=== PATIENT | male | born 1950 | race Two or more races ===

== ENCOUNTER 2017-04-26 11:34 | Inpatient (IN) | payer OTHER ==
[2017-04-26 11:55] VITALS: BMI 25.8
--- NOTE | 2017-04-26 14:55 | HP ---
CIWA Score - CIWA Score Nausea/Vomitin Muscle Tremors: 3 Anxiety: 3 Agitation: 3 Paroxysmal Sweats: 2 Orientation: 0-Oriented Tacttile Disturbances: 2-Mild Itch/Numbness/Burn Auditory Disturbances: 2-Mild Harshness/Frighten Visual Disturbances: 0-None Headache: 2-Mild CIWA-Ar Total Score: 20 Admission ROS BHS - HPI Chief Complaint: i need help to stop drinking alcohol Allergies/Adverse Reactions: Allergies Allergy/AdvReac Type Severity Reaction Status Date / Time No Known Allergies Allergy Verified 04/26/17 14:41 History of Present Illness: this 67 years old male with alcohol dependence,seeking detox,never been in detox before syncope alcohol related childhood asthma history of hypertension fx left wrist,left ankle anxiety,depression,insomnia longest period of sobriety 3 years - Ebola screening Have you traveled outside of the country in the last 21 days: No Have you had contact with anyone from an Ebola affected area: No Have you been sick,other than usual withdrawal symptoms: No Do you have a fever: No - Review of Systems Constitutional: Loss of Appetite, Malaise, Night Sweats, Changes in sleep, Weakness EENT: reports: Nose Congestion Respiratory: reports: No Symptoms reported, Other (childhood asthma) Cardiac: reports: No Symptoms Reported GI: reports: Diarrhea, Nausea, Vomiting, Abdominal cramping : reports: No Symptoms Reported Musculoskeletal: reports: Back Pain, Muscle Pain Integumentary: reports: Dryness Neuro: reports: Tremors Endocrine: reports: No Symptoms Reported Hematology: reports: No Symptoms Reported Psychiatric: reports: Anxious, Depressed (insomnia) Patient History - Patient Medical History Hx Anemia: No Hx Asthma: Yes (childhood asthma) Hx Chronic Obstructive Pulmonary Disease (COPD): No Hx Cancer: No Hx Cardiac Disorders: No Hx Congestive Heart Failure: No Hx Hypertension: Yes (on med) Hx Hypercholesterolemia: No Hx Pacemaker: No HX Cerebrovascular Accident: No Hx Seizures: No Hx Dementia: No Hx Diabetes: No Hx Gastrointestinal Disorders: No Hx Liver Disease: No Hx Genitourinary Disorders: No Hx Sexually Transmitted Disorders: No Hx Renal Disease (ESRD): No Hx Thyroid Disease: No Hx Human Immunodeficiency Virus (HIV): No (never robert tesed,did not want the test done) Hx Hepatitis C: No Hx Depression: Yes Hx Suicide Attempt: No Hx Bipolar Disorder: No Hx Schizophrenia: No Other Medical History: anxiety,no suicidal,no homicidal - Patient Surgical History Past Surgical History: No - PPD History Previous Implant?: Yes Documented Results: Negative w/o proof Implanted On Prior [facility] Admission?: No PPD to be Administered?: Yes - Smoking Cessation Smoking history: Never smoked - Substance & Tx. History Hx Alcohol Use: Yes Hx Substance Use: No Substance Use Type: Alcohol Hx Substance Use Treatment: No - Substances Abused Alcohol Route: Oral Frequency: Daily Amount used: 1 LITER SCOTCH Age of first use: 19 Date of Last Use: 04/26/17 Family Disease History - Family Disease History Family Disease History: Other: Grandparent (alcohol) Admission Physical Exam [facility] - Vital Signs Vital Signs: Vital Signs - 24 hr 04/26/17 11:53 Temperature 98.9 F Pulse Rate 84 Respiratory 18 Rate Blood Pressure 150/100 - Physical General Appearance: Yes: Moderate Distress, Tremorous, Irritable, Sweating, Anxious HEENTM: Yes: Normal ENT Inspection, VIVIEN, Pharynx Normal Respiratory: Yes: Lungs Clear, Normal Breath Sounds, No Respiratory Distress Neck: Yes: Within Normal Limits, Trachea in good position Breast: Yes: Within Normal Limits Cardiology: Yes: Within Normal Limits, Regular Rhythm, Regular Rate, S1, S2 Abdominal: Yes: Normal Bowel Sounds, Non Tender, Soft, Organomegaly Genitourinary: Yes: Within Normal Limits Back: Yes: Muscle Spasm Musculoskeletal: Yes: full range of Motion, Back pain, Muscle Pain Extremities: Yes: Normal Range of Motion, Tremors Neurological: Yes: education manager II-XII NML intact, Fully Oriented, Alert, Motor Strength 5/5 Integumentary: Yes: Dry Lymphatic: Yes: Within Normal Limits - Diagnostic (1) Alcohol dependence with uncomplicated withdrawal Current Visit: Yes Status: Acute (2) Essential hypertension Current Visit: Yes Status: Acute (3) Syncope Current Visit: Yes Status: Acute (4) Fx. left wrist Current Visit: Yes Status: Acute (5) Fracture of left ankle Current Visit: Yes Status: Acute (6) Insomnia secondary to depression with anxiety Current Visit: Yes Status: Acute Cleared for Admission [facility] - Detox or Rehab [facility] Level of Care: Medically Managed Detox Regimen/Protocol: Librium [facility] Breath Alcohol Content Breath Alcohol Content: 0.015 Urine Drug Screen - Results Drug Screen Negative: Yes
[2017-04-26] MEDS ORDERED: MENTHOL/PHENOL 1 EACH UD MM PRN (15:07)
[2017-04-26] MEDS ORDERED: guaiFENesin/D-METHORPHAN HB 10 ML UNIT-DOSE CUPS PO PRN (15:07)
[2017-04-26] MEDS ORDERED: MAGNESIUM HYDROX 2400MG/30ML ORAL SUSPENSION 30 ML CUP PO PRN (15:07)
[2017-04-26] MEDS ORDERED: MAGNESIUM CITRATE 300 ML BOTTLE PO PRN (15:07)
[2017-04-26] MEDS ORDERED: chlordiazePOXIDE HCL 25 MG CAPSULE PO PRN (15:07)
[2017-04-26] MEDS ORDERED: P-EPHED 60MG/TRIPROLIDI 2.5MG TABLET PO PRN (15:07)
[2017-04-26] MEDS ORDERED: ACETAMINOPHEN 325 MG TABLET (FP) PO PRN (15:07)
[2017-04-26] MEDS ORDERED: hydrOXYzine PAMOATE 25 MG CAPSULE (FP) PO PRN (15:07)
[2017-04-26] MEDS ORDERED: LOPERAMIDE HCL 2 MG CAPSULE PO PRN (15:07)
[2017-04-26] MEDS ORDERED: IBUPROFEN 400 MG TABLET (FP) PO PRN (15:07)
[2017-04-26] MEDS ORDERED: MAG HYDROX/AL HYDROX/SIMETH 30 ML UNIT-DOSE CUP PO PRN (15:07)
[2017-04-26] MEDS ORDERED: chlordiazePOXIDE HCL 25 MG CAPSULE PO ONE (15:45)
[2017-04-26] MEDS ORDERED: cloNIDine HCL 0.1 MG TABLET PO ONE (15:46)
[2017-04-26 17:00] LABS: URINE APPEARANCE CLEAR; URINE BILIRUBIN NEGATIVE (NEGATIVE); URINE BLOOD NEGATIVE (NEGATIVE); URINE COLOR YELLOW; URINE GLUCOSE (UA) NEGATIVE (NEGATIVE); URINE KETONE 1+ (NEGATIVE); URINE LEUK ESTERASE TRACE (NEGATIVE); URINE NITRITE NEGATIVE (NEGATIVE)
[2017-04-26 17:03] LABS: URINE PROTEIN 1+ (NEGATIVE)
[2017-04-26 17:09] LABS: EPI CELLS RARE /HPF (FEW); URINE BACTERIA RARE /hpf (NONE SEEN); URINE MUCUS RARE
[2017-04-26] MEDS: chlordiazePOXIDE HCL 25 MG CAPSULE PO SCH ×2 (19:18→22:26)
[2017-04-26] MEDS: THIAMINE HCL 100 MG TABLET (FP) PO SCH (22:25)
[2017-04-27] MEDS: chlordiazePOXIDE HCL 25 MG CAPSULE PO SCH ×4 (06:12→22:23)
--- NOTE | 2017-04-27 09:13 | EKG ---
Test Reason : Blood Pressure : / mmHG Vent. Rate : 072 BPM Atrial Rate : 072 BPM P-R Int : 122 ms QRS Dur : 080 ms QT Int : 396 ms P-R-T Axes : 021 -24 010 degrees QTc Int : 433 ms NORMAL SINUS RHYTHM POSSIBLE LEFT ATRIAL ENLARGEMENT LEFT VENTRICULAR HYPERTROPHY NONSPECIFIC T WAVE ABNORMALITY ABNORMAL ECG NO PREVIOUS ECGS AVAILABLE Confirmed by CHANDU ORELLANA MD ([id number]) on 04/27/2017 9:12:56 AM Referred By: Confirmed By:CHANDU ORELLANA MD
[2017-04-27 09:50] LABS: HEMOGLOBIN 15.7 GM/dL (11.7-16.9); MCH 30.1 pg (25.7-33.7); MCHC 32.8 g/dl (32.0-35.9); MEAN CELL VOLUME 91.7 fl (80-96); MEAN PLT VOLUME 8.3 fl (7.5-11.1); PLATELET COUNT 164 K/MM3 (134-434); RBC 5.24 M/mm3 (4.00-5.60); RDW 12.6 % (11.9-15.9); WHITE BLOOD COUNT 6.9 K/mm3 (4.0-10.0)
[2017-04-27] MEDS ORDERED: LISINOPRIL 20 MG TABLET (FP) PO SCH (10:00)
[2017-04-27] MEDS ORDERED: PANTOPRAZOLE 40 MG TABLET (FP) PO SCH (10:00)
[2017-04-27] MEDS ORDERED: HYDROCHLOROTHIAZIDE 25 MG TABLET (FP) PO SCH (10:00)
[2017-04-27] MEDS ORDERED: PRENATAL VITAMINS W/ FOLIC ACID TABLET (FP) PO SCH (10:00)
[2017-04-27 10:02] LABS: ALBUMIN 3.9 g/dl (3.4-5.0); ANION GAP 8 (8-16); BLOOD UREA NITROGEN 13 mg/dL (7-18); CALCIUM 9.1 mg/dL (8.5-10.1); CHLORIDE 97 mmol/L (98-107); CO2 33 mmol/L (21-32); GLUCOSE,RANDOM 106 mg/dL (74-106); POTASSIUM 3.5 mmol/L (3.5-5.1); SGPT/ALT 36 U/L (12-78); SODIUM 138 mmol/L (136-145)
[2017-04-27 10:09] LABS: ALK PHOS 57 U/L (45-117); BILIRUBIN,TOTAL 1.4 mg/dL (0.2-1.0); SGOT/AST 41 U/L (15-37); TOT PROT 7.4 g/dl (6.4-8.2)
--- NOTE | 2017-04-27 12:24 | CONSULT ---
[facility] Psychiatric Consult - Data Date of interview: 04/27/17 Admission source: [facility] Identifying data: Pt is a 67 year old male, single, father of six, and currently unemployed. This is patient's first admission to [facility]. Pt. admitted to for alcohol dependence. Substance Abuse History: - Substances Abused. Alcohol. Route: Oral. Frequency: Daily. Amount used: 1 LITER SCOTCH. Age of first use: 19. Date of Last Use: 04/26/17 Medical History: Hypertension. Psychiatric History: Pt. denies h/o psychatric hospitalization, suicide attempts , and OPC. Physical/Sexual Abuse/Trauma History: Denies. Mental Status Exam - Mental Status Exam Alert and Oriented to: Time, Place, Person Cognitive Function: Good Patient Appearance: Well Groomed Mood: Sad Affect: Mood Congruent Patient Behavior: Talkative, Appropriate, Cooperative Speech Pattern: Appropriate, Perseverating (Focused on the woman that left him. Stating she is the reason he began to drink again on Apr 152016) Voice Loudness: Normal Thought Process: Goal Oriented Thought Disorder: Not Present Hallucinations: Denies Suicidal Ideation: Denies Homicidal Ideation: Denies Insight/Judgement: Poor Sleep: Fair Appetite: Fair Muscle strength/Tone: Normal Gait/Station: Normal Psychiatric Findings - Problem List ([place] 1, 2,3) (1) Alcohol dependence with uncomplicated withdrawal Current Visit: Yes Status: Acute - Initial Treatment Plan Initial Treatment Plan: Psychoeducation provided. Detoxification in progress. Observation.
--- NOTE | 2017-04-27 12:56 | PN ---
[facility] CIWA - CIWA Score Nausea/Vomitin-Mild Nausea/No Vomiting Muscle Tremors: 4-Moderate,w/Arms Extend Anxiety: 4-Mod. Anxious/Guarded Agitation: 0-Normal Activity Paroxysmal Sweats: 3 Orientation: 0-Oriented Tacttile Disturbances: 0-None Auditory Disturbances: 0-None Visual Disturbances: 0-None Headache: 0-None Present CIWA-Ar Total Score: 12 S Progress Note (SOAP) Subjective: Anxious, interrupted sleep, sweats, constipation Objective: 04/27/17 12:55 Last Vital Signs Temp Pulse Resp BP Pulse Ox 97.2 F L 79 18 119/87 04/27/17 09:38 04/27/17 09:38 04/27/17 09:38 04/27/17 09:38 Laboratory Last Values WBC 6.9 K/mm3 (4.0-10.0) 04/27/17 07:00 RBC 5.24 M/mm3 (4.00-5.60) 04/27/17 07:00 Hgb 15.7 GM/dL (11.7-16.9) 04/27/17 07:00 Hct 48.0 % (35.4-49) 04/27/17 07:00 MCV 91.7 fl (80-96) 04/27/17 07:00 MCH 30.1 pg (25.7-33.7) 04/27/17 07:00 MCHC 32.8 g/dl (32.0-35.9) 04/27/17 07:00 RDW 12.6 % (11.9-15.9) 04/27/17 07:00 Plt Count 164 K/MM3 (134-434) 04/27/17 07:00 MPV 8.3 fl (7.5-11.1) 04/27/17 07:00 Sodium 138 mmol/L (136-145) 04/27/17 07:00 Potassium 3.5 mmol/L (3.5-5.1) 04/27/17 07:00 Chloride 97 mmol/L (98-107) L 04/27/17 07:00 Carbon Dioxide 33 mmol/L (21-32) H 04/27/17 07:00 Anion Gap 8 (8-16) 04/27/17 07:00 BUN 13 mg/dL (7-18) 04/27/17 07:00 Creatinine 1.0 mg/dL (0.7-1.3) 04/27/17 07:00 Creat Clearance w eGFR > 60 (>60) 04/27/17 07:00 Random Glucose 106 mg/dL (74-106) 04/27/17 07:00 Calcium 9.1 mg/dL (8.5-10.1) 04/27/17 07:00 Total Bilirubin 1.4 mg/dL (0.2-1.0) H 04/27/17 07:00 AST 41 U/L (15-37) H 04/27/17 07:00 ALT 36 U/L (12-78) 04/27/17 07:00 Alkaline Phosphatase 57 U/L (45-117) 04/27/17 07:00 Total Protein 7.4 g/dl (6.4-8.2) 04/27/17 07:00 Albumin 3.9 g/dl (3.4-5.0) 04/27/17 07:00 Urine Color Yellow 04/26/17 15:00 Urine Appearance Clear 04/26/17 15:00 Urine pH 6.0 (5.0-8.0) 04/26/17 15:00 Ur Specific [place] 1.019 (1.001-1.035) 04/26/17 15:00 Urine Protein 1+ (NEGATIVE) H 04/26/17 15:00 Urine Glucose (UA) Negative (NEGATIVE) 04/26/17 15:00 Urine Ketones 1+ (NEGATIVE) H 04/26/17 15:00 Urine Blood Negative (NEGATIVE) 04/26/17 15:00 Urine Nitrite Negative (NEGATIVE) 04/26/17 15:00 Urine Bilirubin Negative (NEGATIVE) 04/26/17 15:00 Urine Urobilinogen 2.0 mg/dL (0.2-1.0) 04/26/17 15:00 Ur Leukocyte Esterase Trace (NEGATIVE) 04/26/17 15:00 Urine WBC (Auto) 5 /hpf (3-5) 04/26/17 15:00 Urine RBC (Auto) 1 /hpf (0-3) 04/26/17 15:00 Ur Epithelial Cells Rare /HPF (FEW) 04/26/17 15:00 Urine Bacteria Rare /hpf (NONE SEEN) 04/26/17 15:00 Urine Mucus Rare 04/26/17 15:00 RPR Titer Nonreactive (NONREACTIVE) 04/27/17 07:00 Labs noted Assessment: 04/27/17 12:56 withdrawal symptoms Plan: Continue Detox Increase fluids Continue to monitor
[2017-04-27] MEDS: THIAMINE HCL 100 MG TABLET (FP) PO SCH (22:23)
[2017-04-28] MEDS: chlordiazePOXIDE HCL 25 MG CAPSULE PO SCH (05:52)
[2017-04-28 06:25] VITALS: BP 121/75; PULSE 61; TEMP 97.6
--- NOTE | 2017-04-28 10:46 | DS ---
[facility] Detox Discharge Summary Admission Date: 04/26/17 Discharge Date: 04/28/17 - History Present History: Alcohol Dependence Additional Comments: Patient is Bahraini speaking. Superintendent Of Generation spoke with patient via Bahraini speaking staff. Patient stated that he has to leave because he has stuff to do. [employer] encouraged patient to continue and complete his inpatient detox. Patient noted with mild tremor of hands after auto service writer asked him to stretch out his hands even though he denied any withdrawal symptoms. Patient informed of risk of leaving while experiencing withdrawal symptoms including . Patient verbalized understanding but proceeded to leave AMA. Patient instructed to see his PCP within 3 days. Pertinent Past History: HTN Alcohol related syncope - Physical Exam Results Vital Signs: Vital Signs Temperature 97.6 F 04/28/17 06:24 Pulse Rate 61 04/28/17 06:24 Respiratory Rate 16 04/28/17 06:24 Blood Pressure 121/75 04/28/17 06:24 O2 Sat by Pulse Oximetry (%) Pertinent Admission Physical Exam Findings: Withdrawal symptoms Laboratory Tests 04/26/17 04/27/17 04/27/17 15:00 07:00 07:00 WBC 6.9 RBC 5.24 Hgb 15.7 Hct 48.0 MCV 91.7 MCH 30.1 MCHC 32.8 RDW 12.6 Plt Count 164 MPV 8.3 Sodium 138 Potassium 3.5 Chloride 97 L Carbon Dioxide 33 H Anion Gap 8 BUN 13 Creatinine 1.0 Creat Clearance w eGFR > 60 Random Glucose 106 Calcium 9.1 Total Bilirubin 1.4 H AST 41 H ALT 36 Alkaline Phosphatase 57 Total Protein 7.4 Albumin 3.9 Urine Color Yellow Urine Appearance Clear Urine pH 6.0 Ur Specific [place] 1.019 Urine Protein 1+ H Urine Glucose (UA) Negative Urine Ketones 1+ H Urine Blood Negative Urine Nitrite Negative Urine Bilirubin Negative Urine Urobilinogen 2.0 Ur Leukocyte Esterase Trace Urine WBC (Auto) 5 Urine RBC (Auto) 1 Ur Epithelial Cells Rare Urine Bacteria Rare Urine Mucus Rare RPR Titer 04/27/17 07:00 WBC RBC Hgb Hct MCV MCH MCHC RDW Plt Count MPV Sodium Potassium Chloride Carbon Dioxide Anion Gap BUN Creatinine Creat Clearance w eGFR Random Glucose Calcium Total Bilirubin AST ALT Alkaline Phosphatase Total Protein Albumin Urine Color Urine Appearance Urine pH Ur Specific [place] Urine Protein Urine Glucose (UA) Urine Ketones Urine Blood Urine Nitrite Urine Bilirubin Urine Urobilinogen Ur Leukocyte Esterase Urine WBC (Auto) Urine RBC (Auto) Ur Epithelial Cells Urine Bacteria Urine Mucus RPR Titer Nonreactive Labs noted: UA shows proteinuria - Medication Discharge Medications: Ambulatory Orders Esomeprazole Magnesium [Nexium 24Hr] 20 mg PO DAILY 04/26/17 Hydrochlorothiazide [Hctz -] 25 mg PO DAILY 04/26/17 Lisinopril 20 mg PO DAILY 04/26/17 - Diagnosis (1) Anxiety Status: Chronic (2) Depression Status: Chronic (3) Proteinuria Status: Acute (4) Insomnia Status: Acute (5) GERD (gastroesophageal reflux disease) Status: Acute (6) Alcohol dependence with uncomplicated withdrawal Status: Acute (7) Syncope Status: Acute (8) Essential hypertension Status: Chronic - AMA Did Patient Leave Against Medical Advice: Yes (F/U with PCP within 3 days; encouraged to drink lots of water)
[2017-04-28] MEDS ORDERED: chlordiazePOXIDE 5 MG CAPSULE PO SCH (17:00)
[2017-04-29] MEDS ORDERED: chlordiazePOXIDE HCL 10 MG CAPSULE PO SCH (17:00)
== END 2017-04-28 10:06 | disposition left against medical advice (07) | DRG 894 ==
LOC: YASAS 11:34 → Y3N 15:32
PROVIDERS: ADMIT Internal Medicine; ATTEND Internal Medicine
PROC: HZ2ZZZZ Detoxification Services for Substance Abuse Treatment (ICD-10-PCS; principal; 2017-04-26)
DX: F10.230 Alcohol dependence with withdrawal, uncomplicated (principal); F32.9 Major depressive disorder, single episode, unspecified; F41.9 Anxiety disorder, unspecified; G47.00 Insomnia, unspecified; I10 Essential (primary) hypertension; K21.9 Gastro-esophageal reflux disease without esophagitis; R55 Syncope and collapse; R80.9 Proteinuria, unspecified; Z87.09 Personal history of other diseases of the respiratory system; Z87.81 Personal history of (healed) traumatic fracture
CPT/HCPCS: 36415; 80053; 81003; 81015; 85027; 86593; 93005; 93010